=== PATIENT | male | born 1950 | race Caucasian/White ===

== ENCOUNTER → 2019-05-29 13:41 | Outpatient (CLI) | payer MEDICARE, SELFPAY ==
[2019-05-19 10:55] VITALS: BMI 31.2
--- NOTE | 2019-05-29 13:44 | ECHOD_ITS ---
Reason For Study: CAD Procedure This was a 2D Doppler, Color Flow transthoracic echocardiogram. Exam performed in department. Left Ventricle Normal LV size. Normal size and thickness. The estimated ejection fraction is 65 %. Stage 1 diastolic dysfunction. No regional wall motion abnormalities noted. Right Ventricle Normal size and thickness. Normal systolic function. Atria Normal left atrium. Normal right atrium. Normal atrial septum. Mitral Valve The mitral valve is structurally normal. No prolapse or stenosis seen. Tricuspid Valve Normal tricuspid valve. Trivial tricuspid valve insufficiency. Right ventricular systolic pressure estimated to be 33 mmHg. Aortic Valve Normal aortic valve. Trisinus/trileaflet aortic valve. Pulmonic Valve Normal pulmonic valve. Great Vessels Normal aortic root. Normal arch. Normal inferior vena cava. Inferior vena cava collapse with sniff. Pericardium/Pleural No pericardial effusion. MMode/2D Measurements & Calculations LVIDd: 4.6 cm IVSd: 1.1 cm Ao root diam: 3.0 cm LVIDs: 2.8 cm LVPWd: 0.96 cm RVDd: 3.2 cm FS: 40.3 % LAV(MOD-bp): 51.5 ml EDV(MOD-sp4): 91.5 ml EDV(MOD-sp2): 76.0 ml LAV(MOD-bp) Indexed: 23.5 ml/m2 ESV(MOD-sp4): 34.3 ml EF(MOD-sp2): 51.7 % LAV(MOD-sp2): 54.7 ml EF(MOD-sp4): 62.5 % LAV(MOD-sp4): 44.9 ml SV(MOD-sp4): 57.2 ml SV(MOD-sp2): 39.3 ml LA A4 area: 16.8 cm2 RA A4 area: 14.1 cm2 Doppler Measurements & Calculations MV E max brady: 60.9 cm/sec Lat Peak E' Brady: 8.3 cm/sec Med Peak E' Brady: 6.5 cm/sec MV A max brady: 78.2 cm/sec E/E' lat: 7.3 E/E' med: 9.3 MV E/A: 0.78 Ao V2 max: 142.9 cm/sec LV V1 max: 116.4 cm/sec PA V2 max: 152.0 cm/sec Ao max P.2 mmHg LV V1 max P.4 mmHg TR max brady: 265.6 cm/sec TR max P.2 mmHg Interpretation Summary The estimated ejection fraction is 65 %. Stage 1 diastolic dysfunction. Trivial tricuspid valve insufficiency. Right ventricular systolic pressure estimated to be 33 mmHg. There is no comparison study available. Ordering Physician: Willis Hutson Referring Physician: Jose David Barajas Performed By: Leslee Christian RDCS
== END ==
PROVIDERS: PCP Family Medicine; Referring Provider Internal Medicine Cardiovascular Disease; Visit Provider Internal Medicine Cardiovascular Disease
DX: I25.10 Atherosclerotic heart disease of native coronary artery without angina pectoris (principal)
CPT/HCPCS: 93306

== ENCOUNTER → 2019-06-02 | Outpatient (CLI) | payer MEDICARE, SELFPAY ==
[2019-05-19 10:55] VITALS: BMI 31.2
--- NOTE | 2019-06-02 10:28 | STEWCON_ITS ---
Reason For Study: CAD/ASHD Stress Results Protocol: [facility] Protocol WITH DEFINITY Maximum Predicted HR: 150 bpm Target HR: 128 bpm % Maximum Predicted HR: 89 % DurationHeart Rate Stage (mm:ss) (bpm) BP Comment baseline 69 114/684 ml total definity given stage 1 3:00 92 120/70 stage 2 3:00 113 158/90 stage 3 2:00 133 170/96moderate shortness of breath, legs tired recovery 84 128/78 Stress Duration: 8:00 mm:ss Maximum Stress HR: 133 bpm Baseline Echocardiogram Findings The estimated ejection fraction is 65 %. Stress Echo Wall motion Data Resting WM Intermediate WM Stress WM Resting Wall Motion Wall Motion Stress No regional wall motion No regional wall motion abnormalities noted. abnormalities noted. EKG Data The baseline ECG displays normal sinus rhythm. The patient exercised according to the regular Haroldo protocol for a total duration of 8:00. The maximum heart rate attained was 134 beats per minute. This was 89% of maximum predicted heart rate. The patient exercised into stage 3 of the Haroldo protocol. During stress, there were no ST or T wave changes noted to suggest ischemia. No clinical angina was noted. No arrhythmias noted. Interpretation Summary The estimated ejection fraction is 65 %. Normal, adequate, treadmill echocardiogram. Negative for ischemia by EKG and echocardiographic criteria. No anginal symptoms noted. No arrhythmias noted. Average exercise capacity for age. Appropriate blood pressure response to exercise. Final LVEF is 75%. Decrease sensitivity due to poor echo windows requiring Definity agent. Patient tolerated procedure well. No complications. The study was technically difficult. Contrast injection was performed. Ordering Physician: Willis Hutson Referring Physician: Willis Hutson Performed By: Arely Alegria, RDCS, RVT
== END | disposition home or self-care (01) ==
LOC: CVS 10:28
PROVIDERS: PCP Family Medicine; Referring Provider Internal Medicine Cardiovascular Disease; Visit Provider Internal Medicine Cardiovascular Disease
DX: I25.10 Atherosclerotic heart disease of native coronary artery without angina pectoris (principal)
CPT/HCPCS: 93017; 93350; Q9957; A4216; C8928

== ENCOUNTER 2021-02-25 12:41 | Emergency (ER) | payer MEDICARE, SELFPAY ==
[2021-02-25 12:43] VITALS: BP 149/88; PULSE 72; RESP 14; TEMP 36; O2SAT 100; BMI 30.2
--- NOTE | 2021-02-25 13:02 | US_ITS ---
EXAM: US ABDOMEN LIMITED, RIGHT UPPER QUADRANT : 1950 CLINICAL INDICATION: ruq pain TECHNIQUE: Real-time ultrasound of the right upper quadrant with image documentation. This report was created using [employer] report [employer] technology. COMPARISON: None. FINDINGS: LIVER: There is a diffuse increase in hepatic parenchymal echogenicity, consistent with fatty infiltration. No intrahepatic biliary ductal dilation. GALLBLADDER: Unremarkable. No shadowing gallstone. No gallbladder wall thickening is demonstrated. No pericholecystic fluid. Negative sonographic Barnes's sign. COMMON BILE DUCT: Unremarkable as visualized. The proximal common bile duct is within normal limits for the patient's age. PANCREAS: Unremarkable as visualized. No focal abnormality is demonstrated in the pancreas. No pancreatic ductal dilatation. RIGHT KIDNEY: 2 small nonobstructive right renal stones are noted. No focal lesion or perinephric collection is demonstrated. 7 mm lower pole cyst. US/Gallbladder IMPRESSION: 1. Normal gallbladder. 2. Parenchymal liver disease. 3. Right nephrolithiasis at 1543 Reported and signed by: Stevan Solomon MD Electronically Signed: Stevan Solomon MD at 15:42 EDT Tel , Service support ,
--- NOTE | 2021-02-25 13:03 | RAD_ITS ---
History: chest pain EXAMINATION/TECHNIQUE: XR Chest 1 View: Portable COMPARISON: None FINDINGS: LINES/DEVICES: None. LUNGS: No consolidation, edema or effusion. No pneumothorax. MEDIASTINUM AND CARDIOVASCULAR STRUCTURES: Cardiac silhouette not enlarged. Central airways and mediastinal contour are unremarkable. BONES AND SOFT TISSUES: Unremarkable. RAD/Chest 1 View (Portable) IMPRESSION: No radiographic evidence of acute cardiopulmonary disease. at 1346 Reported and signed by: Stevan Solomon MD Electronically Signed: Stevan Solomon MD at 13:44 EDT Tel , Service support ,
--- NOTE | 2021-02-25 13:05 | EDS_ITS ---
HPI History of Present Illness Chief Complaint: Chest Pain Informant: patient Onset/Context/Timing Onset: Days (5) Timing: Intermittent Quality: Positive for Aching Location: Right Chest (lateral chest near axilla, radiating into R shoulder) Current Severity: Mild Maximum Severity: 8/10 Worsened By: Nothing Relieved By: Nothing Associated Symptoms: Negative for Nausea, Vomiting, Diaphoresis, Dyspnea, Cough, Lightheadedness and Palpitations Narrative Narrative: Patient states he has had intermittent pain in his right lateral chest radiating up to his right shoulder for the past 5 days or so. 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 He states it had not been triggered by anything in particular and he has been having random events, not triggered by food or movement that he knows of. Today, he was walking in a grocery store about half an hour prior to arrival, and it came back and was severe. He was not lifting anything. He states he nearly took his breath away but he denies having any dyspnea. No presyncope or lightheadedness, palpitations, nausea, sweating, or dyspnea. No recent illness. No recent leg pain or swelling. He states moving his arm around cannot make it worse but there is one particular spot that he feels like he can push on and make it worse although he states when it was worse than now, it seemed to be in a broader area on the right lateral chest. He has a history of for blocked coronary arteries, which has required 8 stents in the past, which is the reason he was concerned about having this discomfort although he admits this feels nothing like his prior episodes of angina that led to PCI. PE Risk Factors: Negative for Recent Travel/Surgery, Recent Immobilization, Prior DVT or PE, Cancer and OCP + Smoking + >/=35 [facility] Medical History (Updated 02/25/21 @ 15:[address] Jc Olivares MD) Atherosclerosis of coronary artery of 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 Presence of stent in coronary artery (~11/04/12) Home Medications lisinopril 10 mg PO DAILY 11/13/15 [History Last Taken Unknown] atorvastatin 40 mg tablet 40 mg PO QHS #90 tab 02/25/19 [Rx Last Taken Unknown] metformin 500 mg tablet 1,000 mg PO BID tab 05/11/19 [History Last Taken Unknown] multivitamin 1 tab PO DAILY 05/19/19 [History Last Taken Unknown] sitagliptin 100 mg tablet 100 mg PO DAILY 05/19/19 [History Last Taken Unknown] ezetimibe 10 mg tablet 10 mg PO DAILY #90 tab 12/21/19 [Rx Last Taken Unknown] cholecalciferol (vitamin D3) 50 mcg (2,000 unit) capsule 50 mcg PO DAILY 06/16/20 [History Last Taken Unknown] aspirin 81 mg tablet,delayed release 81 mg PO DAILY 06/20/20 [History Last Taken Unknown] diclofenac potassium 50 mg tablet 50 mg PO BID 01/06/21 [History Last Taken Unknown] finasteride 5 mg tablet 5 mg PO DAILY 01/06/21 [History Last Taken Unknown] metoprolol succinate 50 mg tablet,extended release 24 hr 25 mg PO DAILY 01/06/21 [History Last Taken Unknown] vit B6-mag cit,oxid-potass cit [Theralith XR] 2 tab PO DAILY 02/25/21 [History Last Taken Unknown] Allergy/AdvReac Type Severity Reaction Status Date / Time Tetanus Vaccines and Toxoid Allergy Anaphylaxis Verified 02/25/21 13:18 [Tetanus Vaccines & Toxoid] seasonal allergies Allergy Intermediate Nasal Uncoded 02/25/21 13:18 congestion, cough Family History Father Kidney stones Brain tumor Mother Hypertension Congestive heart failure Brother CAD (coronary artery disease) Hypertension Hyperlipidemia Surgical History History of colon resection (01/1963) History of lithotripsy 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: Presence of coronary angioplasty implant and graft (~11/04/12) Status post cataract extraction of both eyes with insertion of intraocular lens (~07/2014) Social History Smoking Status: Former smoker quit date: 01/01/92 pack-years: 28 ROS ROS ED Constitutional Constitutional ED: Denies chills or fever(s) Eyes Eyes: Denies change in vision or diplopia ENT ENT ED: Denies rhinorrhea or sore throat Cardiovascular Cardiovascular: Reports as per HPI and chest pain; Denies palpitations Respiratory/Chest Respiratory/Chest: Denies cough or dyspnea Gastrointestinal Gastrointestinal: Denies abdominal pain, diarrhea, nausea or vomiting Genitourinary Genitourinary ED: Denies dysuria or hematuria Musculoskeletal Musculoskeletal: Reports as per HPI; Denies back pain or neck pain Integumentary Denies abscess or rash Neurologic Neurologic: Denies headache(s), paresthesias or weakness Psychiatric Psychiatric: Denies anxiety or suicidal thoughts EXAM Physical Exam Const Vital Signs: 02/25/21 12:43 02/25/21 12:45 02/25/21 13:23 Temperature 96.8 F L Temperature Source Temporal Pulse Rate 72 Respiratory Rate 14 Respiratory Effort Normal Non-Labored Blood Pressure 149/88 H Blood Pressure Mean 108 Pulse Ox 100 96 Oxygen Delivery Method Room Air Room Air 02/25/21 13:41 02/25/21 14:53 02/25/21 15:00 Temperature Temperature Source Pulse Rate 75 66 65 Respiratory Rate 20 H 20 H 18 Respiratory Effort Blood Pressure 106/73 112/73 121/93 H Blood Pressure Mean 84 86 102 Pulse Ox 95 97 97 Oxygen Delivery Method Room Air Room Air Room Air Positive well nourished and well developed General Appearance ED: well developed and NAD HEENT Reports moist mucous membranes normocephalic and atraumatic Eyes PERRL and EOMs intact bilaterally Neck full ROM and supple Chest Wall inspection of chest normal and palpation of chest normal Chest: Negative for tenderness Resp normal respiratory effort and clear to auscultation bilaterally Cardio regular rate, regular rhythm and no murmurs Rate: Negative for tachycardic GI non-tender and non-distended Auscultation: normoactive bowel sounds Palpation: soft Back/Spine no CVA tenderness General Back: other FROM Extremity normal to inspection and no calf tenderness General Extremety ED: Negative for edema, pulses abnormal or tenderness General Extremity: Negative for edema or pulses abnormal Neuro oriented x3, CN's II-XII intact bilaterally and no sensory deficits noted Sensorium / Orientation: awake and alert Motor Exam: strength 5/5 throughout Skin no rashes or lesions noted and no wounds Heart Score History: Slightly/Non-Suspicious ECG: Nonspecific Repolarization Age: >/= 65 years Risk Factors: >/= 3 Risk Factors or History of CAD Troponin: </= Normal Limit Score: 5 MDM MDM MDM Narrative Medical decision making narrative: This is certainly atypical discomfort/symptoms, differential ranges from a muscle/rib pain to atypical angina, pulmonary embolus, biliary colic. His cardiac work-up is unremarkable, he does have a lot of ectopy but is asymptomatic with it and I believe is incidental. His D-dimer is slightly abnormal but when corrected for age is well within normal limits to rule out pulmonary embolus. He has no leukocytosis, his liver enzymes are normal, but his lipase incidentally is elevated 1332. Ultrasound of the gallbladder was being obtained anyway which is the next appropriate test for this, that is pending at this time. Certainly clinically he does not have acute pancreatitis. He declined pain medicine since he was barely having any discomfort at the time of initial evaluation and on reevaluation he states his symptoms are gone and he is feeling fine now. Gallbladder results returned, as below there noted. I discussed the nephrolithiasis with the patient, it is certainly possible that was causing the referred pain as well, if he was passing a stone. Follow-up advised. Lab Data Attestation: I reviewed the patient's lab results. Labs: Laboratory Results - last 24 hr 02/25/21 02/25/21 02/25/21 12:35 12:35 12:35 WBC 8.3 RBC 4.67 Hgb 13.6 Hct 42.1 MCV 90.1 MCH 29.1 MCHC 32.3 RDW Std Deviation 43.0 RDW Coeff of Esther 13.1 Plt Count 284 MPV 10.9 Immature Gran % (Auto) 0.500 Neut % (Auto) 49.4 Lymph % (Auto) 30.1 [place] % (Auto) 12.1 H Eos % (Auto) 6.9 H Baso % (Auto) 1.0 Absolute Neuts (auto) 4.1 Absolute Lymphs (auto) 2.49 Nucleated RBC % 0 D-Dimer Quant (PE/DVT) 0.53 H* Sodium 143 Potassium 4.7 Chloride 113 H Carbon Dioxide 22.0 Anion Gap 8 BUN 26 H Creatinine 1.30 Estim Creat Clear Calc 53.03 Est GFR (MDRD) Af Amer 70 Est GFR (MDRD) Non-Af 58 L BUN/Creatinine Ratio 20.0 Glucose 97 Calcium 9.8 Total Bilirubin 0.60 AST 14 L ALT 29 Alkaline Phosphatase 54 Troponin I High Sens 7 Total Protein 7.9 Albumin 3.8 Globulin 4.1 Albumin/Globulin Ratio 0.9 Lipase 1332 H Radiography Diagnostic Testing: Clinical Impression(s) from Imaging Studies Gallbladder Ultrasound 02/25/21 13:02 IMPRESSION: 1. Normal gallbladder. 2. Parenchymal liver disease. 3. Right nephrolithiasis at 1543 Reported and signed by: Stevan Solomon MD Electronically Signed: Stevan Solomon MD at 15:42 EDT Tel , Service support , Chest X-Ray 02/25/21 13:03 IMPRESSION: No radiographic evidence of acute cardiopulmonary disease. at 1346 Reported and signed by: Stevan Solomon MD Electronically Signed: Stevan Solomon MD at 13:44 EDT Tel , Service support , Rhythm Strip Rhythm Strip: Sinus Rhythm Rate: 70 Ectopy: PVC(s) (frequent, occasionally in bigeminy) EKG Initial EKG: Attestation: I personally reviewed and interpreted this EKG as follows: Interpretation: Sinus Rhythm and No Acute Injury Pattern Comments: PVCs Discharge Plan Triage Chief Complaint: Chest Pain ED Provider: Jc Olivares Dx/Rx/DC Orders Clinical Impression: Right-sided chest pain, Elevated lipase, Right nephrolithiasis Instructions: ED Chest Pain, Noncardiac, ED Full Liquid Diet Prescriptions: No Action metformin 500 mg tablet 1,000 mg PO BID RF: 0 multivitamin Tablet 1 tab PO DAILY RF: 0 Januvia 100 mg tablet 100 mg PO DAILY RF: 0 ezetimibe 10 mg tablet 10 mg PO DAILY Qty: 90 RF: 3 cholecalciferol (vitamin D3) 50 mcg (2,000 unit) capsule 50 mcg PO DAILY RF: 0 diclofenac potassium 50 mg tablet 50 mg PO BID RF: 0 metoprolol succinate 50 mg tablet extended release 24 hr 25 mg PO DAILY RF: 0 finasteride 5 mg tablet 5 mg PO DAILY RF: 0 lisinopril 10 MG tablet 10 mg PO DAILY RF: 0 Theralith XR 3.75-45-45-49.5 mg Tablet Extended Release 2 tab PO DAILY RF: 0 atorvastatin 40 mg tablet 40 mg PO QHS Qty: 90 RF: 3 aspirin [Adult Aspirin Regimen] 81 mg tablet,delayed release (DR/EC) 81 mg PO DAILY RF: 0 Primary Care Provider: Jose David Barajas Referrals: Jose David Barajas MD [Primary Care Provider] - As soon as possible (After the weekend, call for appointment) Activity Restrictions/Additional Instructions: Stay on full liquid diet for approximately 48 hours to see if that makes a difference in your symptoms/pain Disposition Disposition: Home, Self Care
[2021-02-25 13:16] LABS: Absolute Lymphocyte Count 2.49 X10^3/uL (0.83-4.51); Absolute Neutrophil Count 4.1 X10^3/uL (2.0-7.7); Basophil# 0.08 X10^3/uL; Eosinophil# 0.57 X10^3/uL; Eosinophils% 6.9 % (0-5); Hematocrit 42.1 % (40-54); Hemoglobin 13.6 g/dL (13.0-16.5); Lymphocyte # 2.49 X10^3/ul (0.83-4.51); Lymphocyte % 30.1 % (19-41); Mean Corp Hgb Conc 32.3 g/dL (32-36); Mean Corpuscular Hgb 29.1 pg (27.0-32.0); Mean Corpuscular Volume 90.1 fL (80-94); Mean Platelet Vol. 10.9 fl (6.2-12.0); Monocyte% 12.1 % (0-10); NRBC Flagged by Analyzer 0 % (0-5); Neutrophil # 4.09 X10^3/uL (2.7-7.7); Neutrophil % 49.4 % (47-70); Platelet Count 284 K/mm3 (150-450); RBC Distribution Width CV 13.1 % (11.6-14.6); Red Blood Count 4.67 M/mm3 (4.6-6.2); White Blood Count 8.3 K/mm3 (4.4-11.0)
[2021-02-25 13:23] VITALS: O2SAT 96
[2021-02-25 13:28] LABS: ALB/GLOB Ratio 0.9 RATIO (0.9-2.4); AST(SGOT) 14 U/L (15-37); Alanine Aminotransfer ALT/SGPT 29 U/L (16-61); Albumin, Serum 3.8 g/dL (3.2-5.0); Alkaline Phosphatase 54 U/L (45-117); Anion Gap 8 (5-15); BUN 26 mg/dL (7-18); Calcium,Total 9.8 mg/dL (8.5-10.1); Chloride 113 mmol/L (98-107); EST Glomerular Filtration Rate 58 mL/min (>60); Est Glom Filt Rate - Afr Amer 70 mL/min (>60); Estimated Creatinine Clearance 53.03 ml/min; Globulin 4.1 g/dL (2.2-4.2); Glucose 97 mg/dL (74-106); Lipase 1332 U/L (73-393); Potassium 4.7 mmol/L (3.5-5.1); Protein, Total 7.9 g/dL (6.4-8.2); Sodium Level 143 mmol/L (136-145); Troponin-I HS 7 pg/mL (3.0-78.0)
[2021-02-25 13:30] LABS: D-Dimer Quantitative (DVT/PE) 0.53 FEU/ug/m (0.27-0.49)
[2021-02-25 13:41] VITALS: BP 106/73; PULSE 75; RESP 20; O2SAT 95
[2021-02-25 14:53] VITALS: BP 112/73; PULSE 66; RESP 20; O2SAT 97
[2021-02-25 15:00] VITALS: BP 121/93; PULSE 65; RESP 18; O2SAT 97
[2021-02-25 15:56] VITALS: BP 117/82; PULSE 61; RESP 17; O2SAT 97
== END 2021-02-25 16:03 | disposition home or self-care (01) ==
PROVIDERS: Emergency Provider Emergency Medicine; PCP Family Medicine
DX: N20.0 Calculus of kidney (principal); R07.89 Other chest pain; R79.89 Other specified abnormal findings of blood chemistry; I25.10 Atherosclerotic heart disease of native coronary artery without angina pectoris; E11.9 Type 2 diabetes mellitus without complications; I10 Essential (primary) hypertension; E78.5 Hyperlipidemia, unspecified; Z95.5 Presence of coronary angioplasty implant and graft; Z79.84 Long term (current) use of oral hypoglycemic drugs; Z79.899 Other long term (current) drug therapy; Z87.891 Personal history of nicotine dependence
CPT/HCPCS: 71045; 76705; 80053; 83690; 84484; 85025; 85379; 93005; 99284; A4216

== ENCOUNTER 2021-06-05 12:26 | Emergency (ER) | payer MEDICARE, SELFPAY ==
[2021-06-05 12:27] VITALS: BP 133/68; PULSE 73; RESP 15; TEMP 35.8; O2SAT 98; BMI 30.3
[2021-06-05 12:34] VITALS: BP 133/68; PULSE 76; RESP 12; O2SAT 98
--- NOTE | 2021-06-05 12:54 | EKG12_ITS ---
Test Reason : CP Blood Pressure : / mmHG Vent. Rate : 068 BPM Atrial Rate : 068 BPM P-R Int : 176 ms QRS Dur : 074 ms QT Int : 370 ms P-R-T Axes : 032 012 042 degrees QTc Int : 393 ms Sinus rhythm with occasional Premature ventricular complexes Otherwise normal ECG Confirmed by SHASHI BEAR, HOLLY ([id number]), editor department GARRETT ZARCO ([id number]) on 06/06/2021 8:36:31 AM Referred By: Confirmed By:HOLLY DANIELLE MD
[2021-06-05 12:55] VITALS: O2SAT 97
--- NOTE | 2021-06-05 12:55 | EDS_ITS ---
HPI History of Present Illness Chief Complaint: Chest Pain Informant: patient Onset/Context/Timing Onset: Hours (several) Activity at onset: sudden and light activity (walking in house after got up this AM) Timing: Continuous Quality: Positive for Pressure and - (poking) Location: Substernal (just right of lower substernum radiating into back opposite affected area) Current Severity: Gone Maximum Severity: Moderate Worsened By: Exertion and Breathing Relieved By: NSAIDS (took full asa) Associated Symptoms: Positive for Lightheadedness; Negative for Nausea, Vomiting, Diaphoresis, Dyspnea, Cough and Palpitations Narrative Narrative: Patient has a history of 8 coronary stents, the last of which was placed in 2012. Presents having similar discomfort in his lower chest right parasternal area radiating into his back. It does get worse with breathing but mildly. He denies any syncope or presyncope. No tearing sensations. No focal neurologic symptoms. No diaphoresis, dyspnea, arm or jaw discomfort. He took a full aspirin prior to coming to gradually improved and now it is gone during evaluation. Patient denies history of DVT or PE. He takes baby aspirin no other antiplatelet or anticoagulant medications. No recent travel, hospitalization, surgery, or leg pain/swelling. No recent illnesses. 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 Presence of stent in coronary artery (~11/04/12) Home Medications lisinopril 10 mg PO DAILY 11/13/15 [History Last Taken Unknown] atorvastatin 40 mg tablet 40 mg PO QHS #90 tab 02/25/19 [Rx Last Taken Unknown] metformin 500 mg tablet 1,000 mg PO BID tab 05/11/19 [History Last Taken Unknown] multivitamin 1 tab PO DAILY 05/19/19 [History Last Taken Unknown] sitagliptin 100 mg tablet 100 mg PO DAILY 05/19/19 [History Last Taken Unknown] ezetimibe 10 mg tablet 10 mg PO DAILY #90 tab 12/21/19 [Rx Last Taken Unknown] cholecalciferol (vitamin D3) 50 mcg (2,000 unit) capsule 50 mcg PO DAILY 06/16/20 [History Last Taken Unknown] aspirin 81 mg tablet,delayed release 81 mg PO DAILY 06/20/20 [History Last Taken Unknown] diclofenac potassium 50 mg tablet 50 mg PO BID 01/06/21 [History Last Taken Unknown] finasteride 5 mg tablet 5 mg PO DAILY 01/06/21 [History Last Taken Unknown] metoprolol succinate 50 mg tablet,extended release 24 hr 25 mg PO DAILY 01/06/21 [History Last Taken Unknown] vit B6-mag cit,oxid-potass cit [Theralith XR] 2 tab PO DAILY 02/25/21 [History Last Taken Unknown] Allergy/AdvReac Type Severity Reaction Status Date / Time Tetanus Vaccines and Toxoid Allergy Anaphylaxis Verified 06/05/21 12:27 [Tetanus Vaccines & Toxoid] seasonal allergies Allergy Intermediate Nasal Uncoded 06/05/21 12:27 congestion, cough Family History Father Kidney stones Brain tumor Mother Hypertension Congestive heart failure Brother CAD (coronary artery disease) Hypertension Hyperlipidemia Surgical History History of colon resection (01/1963) History of lithotripsy 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: Presence of coronary angioplasty implant and graft (~11/04/12) Status post cataract extraction of both eyes with insertion of intraocular lens (~07/2014) Social History Smoking Status: Former smoker quit date: 05/06/91 pack-years: 28 ROS ROS ED Constitutional Constitutional ED: Denies chills or fever(s) Eyes Eyes: Denies change in vision or diplopia ENT ENT ED: Denies rhinorrhea or sore throat Cardiovascular Cardiovascular: Reports chest pain; Denies palpitations Respiratory/Chest Respiratory/Chest: Denies cough or dyspnea Gastrointestinal Gastrointestinal: Denies abdominal pain, diarrhea, nausea or vomiting Genitourinary Genitourinary ED: Denies dysuria or hematuria Musculoskeletal Musculoskeletal: Denies back pain or neck pain Integumentary Denies abscess or rash Neurologic Neurologic: Denies headache(s), paresthesias or weakness Psychiatric Psychiatric: Denies anxiety or suicidal thoughts EXAM Physical Exam Const Vital Signs: 06/05/21 12:27 06/05/21 12:34 06/05/21 12:55 Temperature 96.4 F L Temperature Source Temporal Pulse Rate 73 76 Respiratory Rate 15 12 Blood Pressure 133/68 H 133/68 H Blood Pressure Mean 89 89 Pulse Ox 98 98 97 Oxygen Delivery Method Room Air Room Air Room Air 06/05/21 13:32 06/05/21 14:12 Temperature Temperature Source Pulse Rate 77 68 Respiratory Rate 16 18 Blood Pressure 125/78 H 122/77 H Blood Pressure Mean 93 92 Pulse Ox 98 97 Oxygen Delivery Method Room Air Room Air Positive well nourished and well developed General Appearance ED: well developed and NAD HEENT Reports moist mucous membranes normocephalic and atraumatic Eyes PERRL and EOMs intact bilaterally Neck full ROM and supple Resp normal respiratory effort and clear to auscultation bilaterally Cardio regular rate, regular rhythm, S1 normal heart sound and no murmurs Rate: other Other Details: Split S2 GI non-tender and non-distended Auscultation: normoactive bowel sounds Palpation: soft Back/Spine no CVA tenderness General Back: other FROM Extremity normal to inspection, no calf tenderness and no pedal edema General Extremety ED: Negative for edema, pulses abnormal or tenderness General Extremity: Negative for edema or pulses abnormal Neuro oriented x3, CN's II-XII intact bilaterally and no sensory deficits noted Sensorium / Orientation: awake and alert Motor Exam: strength 5/5 throughout Skin no rashes or lesions noted and no wounds Heart Score History: Moderately Suspicious ECG: Nonspecific Repolarization Age: >/= 65 years Risk Factors: >/= 3 Risk Factors or History of CAD Troponin: </= Normal Limit Score: 6 MDM MDM MDM Narrative Medical decision making narrative: Work-up is unremarkable including negative D- dimer. His EKG shows unchanged diffuse ST-T wave abnormalities. There is no acute injury pattern. I am concerned about his symptoms. On reevaluation after his work-up return, his discomfort has not returned and the patient wants to leave because of this. We discussed the possibility of this being unstable angina and the fact that he has 8 stents, in addition to the possibility of having an NE that could result in while waiting to follow-up with cardiology, having further work-up, etc. He understands all that, the second troponin came back negative, and we shared decision-making, the patient decides to leave understanding fully the risks, his was present for all of the discussion and they are comfortable with this overall plan of following up with cardiology. I did discuss briefly with Dr. Duval, he agreed that admitting the patient would be reasonable despite negative troponins given the symptoms but at the same time the patient does not have classic angina and if he wants to follow-up and take on the risk, they will see him as an outpatient. Lab Data Attestation: I reviewed the patient's lab results. Labs: Laboratory Results - last 24 hr 06/05/21 06/05/21 06/05/21 12:42 12:42 12:42 WBC 8.1 RBC 4.85 Hgb 14.2 Hct 42.4 MCV 87.4 MCH 29.3 MCHC 33.5 RDW Std Deviation 39.5 RDW Coeff of Esther 12.3 Plt Count 256 MPV 10.7 Immature Gran % (Auto) 0.400 Neut % (Auto) 52.0 Lymph % (Auto) 31.0 [place] % (Auto) 10.7 H Eos % (Auto) 5.3 H Baso % (Auto) 0.6 Absolute Neuts (auto) 4.2 Absolute Lymphs (auto) 2.50 Nucleated RBC % 0 D-Dimer Quant (PE/DVT) 0.38 Sodium 139 Potassium 4.3 Chloride 108 H Carbon Dioxide 25.0 Anion Gap 6 BUN 21 H Creatinine 1.01 Estim Creat Clear Calc 68.26 Est GFR (MDRD) Af Amer 93 Est GFR (MDRD) Non-Af 77 BUN/Creatinine Ratio 20.8 H Glucose 143 H Calcium 9.3 Troponin I High Sens 5 06/05/21 14:50 WBC RBC Hgb Hct MCV MCH MCHC RDW Std Deviation RDW Coeff of Esther Plt Count MPV Immature Gran % (Auto) Neut % (Auto) Lymph % (Auto) [place] % (Auto) Eos % (Auto) Baso % (Auto) Absolute Neuts (auto) Absolute Lymphs (auto) Nucleated RBC % D-Dimer Quant (PE/DVT) Sodium Potassium Chloride Carbon Dioxide Anion Gap BUN Creatinine Estim Creat Clear Calc Est GFR (MDRD) Af Amer Est GFR (MDRD) Non-Af BUN/Creatinine Ratio Glucose Calcium Troponin I High Sens 6 Radiography Diagnostic Testing: Clinical Impression(s) from Imaging Studies Chest X-Ray 06/05/21 12:55 IMPRESSION: No acute abnormality is seen. Electronically Signed: Lyndon Andrea MD at 13:45 EST , Rhythm Strip Rhythm Strip: Sinus Rhythm Rate: 65 Ectopy: PVC(s) EKG Initial EKG: Attestation: I personally reviewed and interpreted this EKG as follows: Interpretation: Sinus Rhythm, No Acute Injury Pattern and Non-Specific ST Changes (w/o JAMES/STD) Comments: PVCs Prior EKG tracings: available for review Prior: Unchanged Discharge Plan Triage Chief Complaint: Chest Pain Other Complaint: Hypertension Shortness of Breath ED Provider: Jc Olivares Dx/Rx/DC Orders Clinical Impression: Chest pain, unspecified, CAD (coronary artery disease) Instructions: ED Chest Pain, Uncertain Cause Prescriptions: No Action metformin 500 mg tablet 1,000 mg PO BID RF: 0 multivitamin Tablet 1 tab PO DAILY RF: 0 Januvia 100 mg tablet 100 mg PO DAILY RF: 0 ezetimibe 10 mg tablet 10 mg PO DAILY Qty: 90 RF: 3 cholecalciferol (vitamin D3) 50 mcg (2,000 unit) capsule 50 mcg PO DAILY RF: 0 diclofenac potassium 50 mg tablet 50 mg PO BID RF: 0 metoprolol succinate 50 mg tablet extended release 24 hr 25 mg PO DAILY RF: 0 finasteride 5 mg tablet 5 mg PO DAILY RF: 0 lisinopril 10 MG tablet 10 mg PO DAILY RF: 0 Theralith XR 3.75-45-45-49.5 mg Tablet Extended Release 2 tab PO DAILY RF: 0 atorvastatin 40 mg tablet 40 mg PO QHS Qty: 90 RF: 3 aspirin [Adult Aspirin Regimen] 81 mg tablet,delayed release (DR/EC) 81 mg PO DAILY RF: 0 Primary Care Provider: Jose David Barajas Referrals: Jose David Barajas MD [Primary Care Provider] - uLcho Eng MD [STAFF PHYSICIAN] - As soon as possible Disposition Disposition: Home, Self Care
--- NOTE | 2021-06-05 12:55 | RAD_ITS ---
STUDY: X-RAY CHEST REASON FOR EXAM: Male, 71 years old. Chest pain TECHNIQUE: Single AP portable view of the chest. COMPARISON: Comparison is made with prior study 02/25/2021. FINDINGS: EKG electrodes are seen. The lungs are clear and expanded. There is no demonstrated pleural abnormality. Normal size heart. Normal mediastinum and malini. Normal visualized pulmonary arteries. Normal visualized aortic arch and descending thoracic aorta. There are diffuse degenerative changes of the visualized thoracic spine. Normal visualized ribs, clavicles, and shoulders. There is no demonstrated abnormality of the visualized soft tissue structures of the upper abdomen. RAD/Chest 1 View (Portable) IMPRESSION: No acute abnormality is seen. Electronically Signed: Lyndon Andrea MD at 13:45 EST ,
[2021-06-05 13:03] LABS: Absolute Neutrophil Count 4.2 X10^3/uL (2.0-7.7); Basophil# 0.05 X10^3/uL; Basophil% 0.6 % (0-1); Eosinophil# 0.43 X10^3/uL; Eosinophils% 5.3 % (0-5); Hematocrit 42.4 % (40-54); Hemoglobin 14.2 g/dL (13.0-16.5); Mean Corp Hgb Conc 33.5 g/dL (32-36); Mean Corpuscular Hgb 29.3 pg (27.0-32.0); Mean Corpuscular Volume 87.4 fL (80-94); Mean Platelet Vol. 10.7 fl (6.2-12.0); Monocyte# 0.86 X10^3/uL; Monocyte% 10.7 % (0-10); NRBC Flagged by Analyzer 0 % (0-5); Platelet Count 256 K/mm3 (150-450); RBC Distribution Width CV 12.3 % (11.6-14.6); RBC Distribution Width SD 39.5 fl (35.1-43.9); Red Blood Count 4.85 M/mm3 (4.6-6.2); White Blood Count 8.1 K/mm3 (4.4-11.0)
[2021-06-05 13:16] LABS: D-Dimer Quantitative (DVT/PE) 0.38 FEU/ug/m (0.27-0.49)
[2021-06-05 13:17] LABS: Anion Gap 6 (5-15); BUN 21 mg/dL (7-18); BUN/Creat Ratio 20.8 RATIO (10-20); Calcium,Total 9.3 mg/dL (8.5-10.1); Chloride 108 mmol/L (98-107); Creatinine, Serum 1.01 mg/dL (0.70-1.30); EST Glomerular Filtration Rate 77 mL/min (>60); Est Glom Filt Rate - Afr Amer 93 mL/min (>60); Estimated Creatinine Clearance 68.26 ml/min; Glucose 143 mg/dL (74-106); Potassium 4.3 mmol/L (3.5-5.1); Sodium Level 139 mmol/L (136-145); Troponin-I HS 5 pg/mL (3.0-78.0)
[2021-06-05 13:32] VITALS: BP 125/78; PULSE 77; RESP 16; O2SAT 98
[2021-06-05 14:12] VITALS: BP 122/77; PULSE 68; RESP 18; O2SAT 97
[2021-06-05 15:13] LABS: Troponin-I HS 6 pg/mL (3.0-78.0)
[2021-06-05 15:46] VITALS: BP 137/78; PULSE 72; RESP 16; TEMP 36.4; O2SAT 98
--- NOTE | 2021-06-06 11:45 | CASEMGMT ---
LOBO CONTRERAS ED follow-up: Date of ED visit: 06/05/2021 ER presenting complaint: chest pain LOBO CONTRERAS placed call to patient's telephone number listed on demographics, patient answered. Patient states feeling pretty good today and denies chest pain, shortness of breath or other complaint. Patient reports he has scheduled follow up appointment with Dr. Duval's office for 06/08/2021. Patient encouraged to keep scheduled appointed. Instructed on red flag signs and symptoms to monitor for. Patient denies questions, concerns or needs. LOBO [place] CM
== END 2021-06-05 15:49 | disposition home or self-care (01) ==
PROVIDERS: Emergency Provider Emergency Medicine; PCP Family Medicine; Visit Provider Emergency Medicine
DX: R07.9 Chest pain, unspecified (principal); I25.10 Atherosclerotic heart disease of native coronary artery without angina pectoris; Z87.891 Personal history of nicotine dependence; Z95.5 Presence of coronary angioplasty implant and graft
CPT/HCPCS: 36415; 71045; 80048; 84484; 85025; 85379; 93005; 99284

== ENCOUNTER 2021-06-26 06:23 | Outpatient (CLI) | payer MEDICARE, SELFPAY ==
--- NOTE | 2021-06-26 06:25 | ECHOD_ITS ---
Reason For Study: RANGEL, chest pain Procedure This was a 2D Doppler, Color Flow transthoracic echocardiogram. The exam was of adequate technical quality. Exam performed in department. Left Ventricle Normal LV size. Left ventricular systolic function is normal. The estimated ejection fraction is 60 %. The global longitudinal strain = -16% (borderline). No evidence for diastolic dysfunction. No regional wall motion abnormalities noted. Right Ventricle Normal RV size. Normal systolic function. Atria The left atrium is mildly enlarged. Normal right atrium. No doppler evidence for ASD. Mitral Valve There is no mitral annular calcification. Mild focal mitral valve calcification of the posterior leaflet. Mild (1+) eccentric mitral valve insufficiency. Tricuspid Valve Normal tricuspid valve. Mild tricuspid valve insufficiency. Unable to estimate RV systolic pressure due to insufficient tricuspid regurgitant envelope. Aortic Valve Trisinus/trileaflet aortic valve. Mild focal aortic valve calcification. Pulmonic Valve The pulmonic valve is not well visualized. Trivial pulmonic valve insufficiency. Great Vessels Normal sized aortic root. Pericardium/Pleural No pericardial effusion. MMode/2D Measurements & Calculations LVIDd: 4.8 cm IVSd: 1.0 cm Ao root diam: 3.0 cm LVIDs: 3.4 cm LVPWd: 0.88 cm RVDd: 3.5 cm FS: 30.2 % LAV(MOD-bp): 51.9 ml LVAd ap4: 31.2 cm2 LVAd ap2: 31.8 cm2 LAV(MOD-bp) Indexed: 24.5 ml/m2 LVLd ap4: 8.4 cm LVLd ap2: 8.7 cm LAV(MOD-sp2): 53.0 ml EDV(MOD-sp4): 94.0 ml EDV(MOD-sp2): 96.5 ml LAV(MOD-sp4): 50.4 ml EDV(sp4-el): 98.4 ml EDV(sp2-el): 99.0 ml LVAs ap4: 19.3 cm2 LVAs ap2: 19.0 cm2 LVLs ap4: 7.4 cm LVLs ap2: 7.4 cm ESV(MOD-sp4): 42.3 ml ESV(MOD-sp2): 40.2 ml ESV(sp4-el): 42.4 ml ESV(sp2-el): 41.5 ml EF(MOD-sp4): 55.0 % EF(MOD-sp2): 58.3 % EF(sp4-el): 57.0 % SV(MOD-sp4): 51.7 ml SV(MOD-sp2): 56.2 ml SV(sp4-el): 56.1 ml LA dimension(2D): 3.8 cm LA A4 area: 18.2 cm2 RA A4 area: 15.7 cm2 Doppler Measurements & Calculations MV E max brady: 66.1 cm/sec Lat Peak E' Brady: 7.6 cm/sec Med Peak E' Brady: 6.9 cm/sec MV A max brady: 80.1 cm/sec E/E' lat: 8.7 E/E' med: 9.6 MV E/A: 0.83 Ao V2 max: 180.3 cm/sec LV V1 max: 104.4 cm/sec PA V2 max: 122.9 cm/sec Ao max P.0 mmHg LV V1 max P.4 mmHg ECHO/Echo Complete Interpretation Summary Left ventricular systolic function is normal. The estimated ejection fraction is 60 %. The global longitudinal strain = -16% (borderline). The left atrium is mildly enlarged. Mild focal mitral valve calcification of the posterior leaflet. Mild (1+) eccentric mitral valve insufficiency. Mild tricuspid valve insufficiency. Mild focal aortic valve calcification. Trivial pulmonic valve insufficiency. Unable to estimate RV systolic pressure due to insufficient tricuspid regurgita nt envelope. No evidence for diastolic dysfunction. Ordering Physician: Yohana Vuong Referring Physician: Jose David Barajas Performed By: Leslee Christian RDCS
--- NOTE | 2021-06-26 19:14 | STRESSREP ---
Stress Test Report Date: 06-26-2021 Procedure: Exercise tolerance test/imaging study Indications: Chest pain; dyspnea on exertion; CAD; PCI Consent: Per the patient Procedure: The patient exercised on a Haroldo protocol for 5 minutes and 31 seconds completing Stage I and 2 minutes and 31 seconds of Stage II achieving a peak heart rate of 139 bpm (93% predicted maximal heart rate) with a peak blood pressure 200/88 mmHg and a peak MET capacity of 7 METs. The baseline ECG demonstrated normal sinus rhythm. The peak exercise ECG demonstrated no obvious ECG changes. There was a rare PVC during exercise and early recovery. The functional capacity was considered average. There was no complaint of chest discomfort during exercise or recovery. The examination was discontinued secondary to dyspnea. Impression: 1. Technically adequate (percent predicted maximal heart rate greater than 85%) exercise tolerance test 2. Peak exercise ECG with no obvious ECG changes 3. There was a rare PVC during exercise and early recovery 4. Nuclear images pending Myocardial perfusion imaging study: Technique: The patient was injected with 11.7 mCi of technetium 99m Cardiolite and subsequently rest SPECT Cardiolite nuclear imaging was obtained in the horizontal long, vertical long, and short axis views. The patient exercised on a Haroldo protocol for 5 minutes and 31 seconds completing Stage I and 2 minutes and 31 seconds of Stage II achieving a peak heart rate of 139 bpm (93% predicted maximal heart rate) with a peak blood pressure 200/88 mmHg and a peak MET capacity of 7 METs. The patient was injected with 35.3 mCi of technetium 99m Cardiolite and subsequently stress SPECT Cardiolite nuclear imaging was obtained in the horizontal long, vertical long, and short axis views. A gated Cardiolite study at peak stress was obtained. Interpretation: Rest and stress SPECT Cardiolite nuclear imaging status post realignment, normalization, and attenuation correction, demonstrates the appearance of relative uniform tracer uptake and myocardial perfusion appearing within normal limits. There is end systolic thickening and brightening. The gated Cardiolite study demonstrates myocardial thickening and inward wall motion. The reported LVEF is 65%. Impression: 1. Rest and stress SPECT Cardiolite nuclear imaging demonstrate relative uniform tracer uptake and myocardial perfusion appearing within normal limits. 2. The gated Cardiolite study reports an LVEF of 65%. This note was generated with [employer] software. It may contain incorrect words, spelling, and punctuation that were not noted in checking the note before signing.
== END 2021-06-26 23:59 | disposition home or self-care (01) ==
LOC: CVS 06:24
PROVIDERS: PCP Family Medicine; Referring Provider Nurse Practitioner Gerontology; Visit Provider Nurse Practitioner Gerontology
DX: R07.9 Chest pain, unspecified (principal); I25.10 Atherosclerotic heart disease of native coronary artery without angina pectoris
CPT/HCPCS: 78452; 93017; 93306; A9500; A4216

== ENCOUNTER 2022-03-12 18:22 | Emergency (ER) | payer MEDICARE, SELFPAY ==
[2022-03-12 18:23] VITALS: BP 118/87; PULSE 78; RESP 18; TEMP 36; O2SAT 99; BMI 27.9
--- NOTE | 2022-03-12 18:49 | EDS_ITS ---
HPI <WILBERT Oneil - Last Filed: 03/12/22 19:52> History of Present Illness Chief Complaint: Bite Narrative Narrative: Patient presents after being bit on both hands by his dog. He states he was sitting in his recliner chair when his dog randomly came up and attacked him. The dog is up-to-date with rabies vaccination. He states he has not had a tetanus vaccine in several years and refuses to get one today due to having a severe allergy. 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 Presence of stent in coronary artery (~11/04/12) Home Medications lisinopril 10 mg tablet 10 mg PO DAILY 11/13/15 [History Last Taken Unknown] atorvastatin 40 mg tablet 40 mg PO QHS #90 tabs 02/25/19 [Rx Last Taken Unknown] metformin 500 mg tablet 1,000 mg PO BID 05/11/19 [History Last Taken Unknown] multivitamin 1 tab PO DAILY 05/19/19 [History Last Taken Unknown] sitagliptin phosphate 100 mg tablet (Januvia) 100 mg PO DAILY 05/19/19 [History Last Taken Unknown] ezetimibe 10 mg tablet 10 mg PO DAILY #90 tabs 12/21/19 [Rx Last Taken Unknown] cholecalciferol (vitamin D3) 50 mcg (2,000 unit) capsule 50 mcg PO DAILY 06/16/20 [History Last Taken Unknown] aspirin 81 mg tablet,delayed release (Adult Aspirin Regimen) 81 mg PO DAILY 06/20/20 [History Last Taken Unknown] finasteride 5 mg tablet 5 mg PO DAILY 01/06/21 [History Last Taken Unknown] metoprolol succinate 50 mg tablet,extended release 24 hr 25 mg PO DAILY 01/06/21 [History Last Taken Unknown] vit B6-mag cit,ox-potassium cit 3.75 mg-45 mg-45 mg-49.5 mg tablet ER (Theralith XR) 2 tab PO DAILY 02/25/21 [History Last Taken Unknown] naproxen sodium 220 mg capsule (Aleve) 220 mg PO BID PRN 06/08/21 [History Last Taken Unknown] meloxicam 15 mg tablet 15 mg PO DAILY 07/21/21 [History Last Taken Unknown] amoxicillin 875 mg-potassium clavulanate 125 mg tablet 1 tab PO BID dog bite 7 days #14 tabs 03/12/22 [Rx Last Taken Unknown] Allergy/AdvReac Type Severity Reaction Status Date / Time Tetanus Vaccines and Toxoid Allergy Anaphylaxis Verified 03/12/22 18:26 [Tetanus Vaccines & Toxoid] seasonal allergies Allergy Intermediate Nasal Uncoded 03/12/22 18:26 congestion, cough Family History Father Kidney stones Brain tumor Mother Hypertension Congestive heart failure Brother CAD (coronary artery disease) Hypertension Hyperlipidemia Surgical History History of colon resection (01/1963) History of lithotripsy 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: Presence of coronary angioplasty implant and graft (~11/04/12) Status post cataract extraction of both eyes with insertion of intraocular lens (~07/2014) Social History (Updated 07/21/21 @ 11:36 by Diana De La Paz) Smoking Status: Former smoker quit date: 05/06/91 pack-years: 28 alcohol intake: current alcohol intake frequency: a few times a week Alcohol type: beer, wine and hard liquor substance use type: does not use caffeine: Yes Type: coffee eating out: 4 or more times/week ROS <WILBERT Oneil - Last Filed: 03/12/22 19:52> ROS ED Constitutional Constitutional ED: Denies chills or fever(s) Eyes Eyes: Denies change in vision ENT ENT ED: Denies rhinorrhea or sore throat Cardiovascular Cardiovascular: Denies chest pain or racing heartbeat Respiratory/Chest Respiratory/Chest: Denies cough or dyspnea Gastrointestinal Gastrointestinal: Denies abdominal pain, nausea or vomiting Musculoskeletal Musculoskeletal: Denies myalgias Integumentary Reports laceration; Denies abscess or rash Neurologic Neurologic: Denies headache(s) or weakness EXAM <WILBERT Oneil - Last Filed: 03/12/22 19:52> Physical Exam Const Vital Signs: 03/12/22 18:23 Temperature 96.8 F L Temperature Source Temporal Pulse Rate 78 Respiratory Rate 18 Blood Pressure 118/87 H Blood Pressure Mean 97 Pulse Ox 99 Oxygen Delivery Method Room Air Positive well nourished HEENT atraumatic Eyes PERRL and EOMs intact bilaterally Neck full ROM Resp normal respiratory effort and clear to auscultation bilaterally Auscultation: Negative for rales, rhonchi, wheezes or diminished lung sounds Cardio regular rhythm and no murmurs Rate: regular rate GI non-tender, non-distended and no masses Back/Spine normal to inspection Extremity full ROM Extremity Narrative: Patient has multiple puncture wounds on both hands. He has a 1 inch superficial laceration on his left pinky. No edema or purulent discharge. General Extremety ED: Negative for edema General Extremity: Negative for edema Neuro oriented x3, moves all extremities, no focal motor deficits, no sensory deficits noted and gait normal Sensorium / Orientation: alert Motor Exam: strength 5/5 throughout Psych mental status grossly normal and thought process normal Skin Skin Narrative: Patient has multiple superficial puncture wounds on both hands. He has a 1-1.5 inch superficial laceration on his left pinky near the PIP joint. No edema, bony tenderness, deformity or purulent discharge. Bleeding is controlled. <Dr. Frandy Beltran, - Last Filed: 03/12/22 19:37> Physical Exam Const Vital Signs: 03/12/22 18:23 Temperature 96.8 F L Temperature Source Temporal Pulse Rate 78 Respiratory Rate 18 Blood Pressure 118/87 H Blood Pressure Mean 97 Pulse Ox 99 Oxygen Delivery Method Room Air [facility] <WILBERT Oneil - Last Filed: 03/12/22 19:52> [facility] Narrative Medical decision making narrative: Wounds have been cleaned with bacitracin ointment applied and bandaged. 1 dose of 875 mg Augmentin given here in the ED. Patient is able to discharge home with antibiotics. <Dr. Frandy Beltran, - Last Filed: 03/12/22 19:37> [facility] Treatment and Re-Evaluation Narrative: This patient was seen with a PA/SHOT CORE DRILL OPERATOR Individually assessed they patient including history and physical. I have reviewed everything on the chart that is available and agree with the documentation provided by the PA/SHOT CORE DRILL OPERATOR including discussion about the assessment, treatment plan, discussion, and return precautions. Patient presents after sustaining dog bites to both hands. Most of these are puncture type wounds. No bony tenderness or deformity. Bleeding is controlled. He does have a about a 1 to 1.5 inch laceration overlying the left PIP on the left pinky. Bleeding is controlled. Wound margins are fairly well approximated. Patient counseled the wound will need to heal by secondary intention. Patient declines tetanus update and states he is never had this. Patient does not anything for pain. Patient's wound cleaned and dressed. Discussed to soak these in hot soapy water 3-4 times a day. He started on Augmentin with first dose in the ER. Discharge Plan Triage Chief Complaint: Bite ED Midlevel Provider: Latoya Soliz ED Provider: Frandy Beltran Dx/Rx/DC Orders Clinical Impression: Dog bite of left hand, Dog bite of right hand Instructions: ED Dog Bite Prescriptions: New amoxicillin-pot clavulanate 875-125 mg tablet 1 tab PO BID 7 Days Qty: 14 0RF No Action metformin 500 mg tablet 1,000 mg PO BID multivitamin Tablet 1 tab PO DAILY Januvia 100 mg tablet 100 mg PO DAILY ezetimibe 10 mg tablet 10 mg PO DAILY Qty: 90 3RF cholecalciferol (vitamin D3) 50 mcg (2,000 unit) capsule 50 mcg PO DAILY metoprolol succinate 50 mg tablet extended release 24 hr 25 mg PO DAILY finasteride 5 mg tablet 5 mg PO DAILY meloxicam 15 mg tablet 15 mg PO DAILY naproxen sodium [Aleve] 220 mg capsule 220 mg PO BID PRN lisinopril 10 MG tablet 10 mg PO DAILY Theralith XR 3.75-45-45-49.5 mg Tablet Extended Release 2 tab PO DAILY atorvastatin 40 mg tablet 40 mg PO QHS Qty: 90 3RF aspirin [Adult Aspirin Regimen] 81 mg tablet,delayed release (DR/EC) 81 mg PO DAILY Primary Care Provider: Jose David Barajas Referrals: Jose David Barajas MD [Primary Care Provider] - 1 Week if not improving Activity Restrictions/Additional Instructions: Please seek medical attention if signs of infection begin such as red streaking from the wound, increased redness, pus-like discharge, increased swelling, or a fever develops. Clean wound with mild soap and water twice daily. You can put petroleum jelly or bacitracin ointment over the wound and cover with a bandage. Disposition Disposition: Home, Self Care Discharge Date/Time: 03/12/22 19:42
[2022-03-12] MEDS: Amox/Clavulanate 875 MG Tablet PO (19:05)
== END 2022-03-12 19:42 | disposition home or self-care (01) ==
PROVIDERS: Emergency Provider Student in an Organized Health Care Education/Training Program; PCP Family Medicine; Visit Provider Student in an Organized Health Care Education/Training Program
DX: S61.451A Open bite of right hand, initial encounter (principal); E11.9 Type 2 diabetes mellitus without complications; S61.452A Open bite of left hand, initial encounter; I25.10 Atherosclerotic heart disease of native coronary artery without angina pectoris; W54.0XXA Bitten by dog, initial encounter; I10 Essential (primary) hypertension; E78.5 Hyperlipidemia, unspecified; Z87.891 Personal history of nicotine dependence
CPT/HCPCS: 99282

== ENCOUNTER 2024-09-17 05:40 | Emergency (ER) | payer MEDICARE, SELFPAY ==
[2024-09-17 05:40] VITALS: BP 138/76; PULSE 63; RESP 17; TEMP 36.4; O2SAT 98; BMI 27.7
[2024-09-17 05:44] VITALS: BP 140/69; PULSE 66; RESP 18; TEMP 36.4; O2SAT 100
--- NOTE | 2024-09-17 05:46 | CT_ITS ---
PROCEDURE: ABDOMEN/PELVIS WITHOUT CONT 09/17/2024 REASON FOR EXAM: PAIN TECHNIQUE: Abdomen and pelvis CT without intravenous contrast. Noncontrast technique limits evaluation of the abdominal and pelvic viscera. Coronal and Sagittal reconstruction series were provided. One or more dose reduction techniques were used (e.g., Automated exposure control, adjustment of the mA and/or kV according to patient size, use of iterative reconstruction technique). PATIENT PREPARATION: Per protocol ORAL CONTRAST TYPE: None. FINDINGS: Mild dependent basilar atelectasis. LAD and right coronary calcification noted. The liver, gallbladder, adrenal glands, pancreas and spleen appear within limits on noncontrast imaging. Nonobstructing right intrarenal stone and right renal cyst noted. 4 mm presenting axis distal left ureteral stone adjacent to the UVJ with mild to moderate left hydroureteronephrosis. Based on size may spontaneously pass. Multiple nonobstructing left intrarenal stones. Exophytic left renal cyst. Asymmetric left perinephric and [place] pelvic stranding, edema may be reactive. Aortoiliac atherosclerotic calcification. No abdominal aortic aneurysm. Circumaortic left renal vein, anatomic variant. No adenopathy. No bowel dilation or free air. Status post partial sigmoid resection. The bladder and prostate appear within limits. No free fluid. Multilevel lower lumbar spondylosis/discogenic change with suggestion of bilateral foraminal and central narrowing. CT/Abdomen/Pelvis without Cont IMPRESSION: 4 mm presenting axis distal left ureteral stone adjacent to the UVJ with mild t o moderate left hydroureteronephrosis. Based on size may spontaneously pass. Asymmetric left perinephric and peripelvic stranding, edema may be reactive. Multiple nonobstructing left intrarenal stones. Exophytic left renal cyst. Nonobstructing right intrarenal stone and right renal cyst noted. LAD and right coronary calcification noted. Reading Location: [id number]
--- NOTE | 2024-09-17 05:56 | ED.VIS.GI ---
HPI HPI - GI History of Present Illness Chief Complaint: Flank Pain Informant: patient Abdominal Pain/Flank Pain Onset: Today and Hours Context: Gradual Onset Timing: Continuous Location: Left Flank (Left groin) Current Severity: Moderate Maximum Severity: Moderate Worsened by: Nothing Relieved by: Nothing Nausea/Vomiting/Emesis GI Symptom: Negative for Nausea or Vomiting Diarrhea/Melena/Hematochezia GI Symptom: Negative for Diarrhea, Melena or Hematochezia Associated Symptoms Associated Symptoms: Negative for Dysuria, Frequency, Hematuria or Urgency Narrative Narrative: 74-year-old male history of multiple prior kidney stones, diabetes, CAD with 8 stents. States that he was woken from sleep around 2 AM this morning with left flank pain going into his groin. Pain has worsened. He denies any nausea, vomiting, diarrhea. He denies any fever. He denies any dysuria or hematuria. He has had kidney stones like this before. 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 Presence of stent in coronary artery (~11/04/12) Kidney stones Hematuria BPH (benign prostatic hyperplasia) Essential hypertension Diabetes mellitus type II, controlled Hyperlipidemia Atherosclerosis of coronary artery of [place] heart without angina pectoris Home Medications ?Medication ?Instructions ?Recorded ?Last Taken ?Type lisinopril 10 mg tablet 10 mg PO DAILY 11/13/15 Unknown History atorvastatin 40 mg tablet 40 mg PO QHS #90 tabs 02/25/19 Unknown Rx metformin 500 mg tablet 1,000 mg PO BID 05/11/19 Unknown History multivitamin 1 tab PO DAILY 05/19/19 Unknown History ezetimibe 10 mg tablet 10 mg PO DAILY #90 tabs 12/21/19 Unknown Rx cholecalciferol (vitamin D3) 50 50 mcg PO DAILY 06/16/20 Unknown History mcg (2,000 unit) capsule aspirin 81 mg tablet,delayed 81 mg PO DAILY 06/20/20 Unknown History release (Adult Aspirin Regimen) finasteride 5 mg tablet 5 mg PO DAILY 01/06/21 Unknown History linagliptin 5 mg tablet (Tradjenta) 5 mg PO DAILY 07/11/22 Unknown History metoprolol succinate 25 mg 25 mg PO DAILY 07/11/22 Unknown History tablet,extended release 24 hr naproxen 500 mg tablet 250 mg PO BID PRN pain 07/11/22 Unknown History prednisone 5 mg tablet 5 mg PO DIRECTED PRN pain 07/11/22 Unknown History vit B6-mag cit,ox-potassium cit 1 tab PO DAILY 07/11/22 Unknown History 3.75 mg-45 mg-45 mg-49.5 mg tablet ER (Theralith XR) oxycodone-acetaminophen 5 mg-325 1 tab PO Q8H PRN pain 2 days #5 09/17/24 Unknown Rx mg tablet (Percocet) tabs Allergy/AdvReac Type Severity Reaction Status Date / Time Seasonal Allergies: Uncoded Allergy Intermediate Other Verified 09/17/24 05:41 Tetanus Vaccines and Toxoid Allergy Anaphylaxis Verified 09/17/24 05:41 (Tetanus Vaccines & Toxoid) Family History Father Kidney stones Brain tumor Mother Hypertension Congestive heart failure Brother CAD (coronary artery disease) Hypertension Hyperlipidemia Surgical History Presence of coronary angioplasty implant and graft (~11/04/12) Status post cataract extraction of both eyes with insertion of intraocular lens (~07/2014) History of colon resection (01/1963) History of lithotripsy 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 Constitutional Constitutional ED: Denies fever(s) ENT ENT ED: Denies ear pain Cardiovascular Cardiovascular: Denies chest pain Respiratory/Chest Respiratory/Chest: Denies cough Gastrointestinal Gastrointestinal: Denies abdominal pain Genitourinary Genitourinary ED: Denies dysuria or hematuria Musculoskeletal Musculoskeletal: Denies arthralgias Integumentary Denies abscess Neurologic Neurologic: Denies headache(s) Psychiatric Psychiatric: Denies anxiety Endocrine Endocrinology: Denies polydipsia Hematologic/Lymphatic Hematologic/Lymphatic: Denies easy bleeding or easy bruising Allergic/Immunologic Allergic/Immunologic ED: Denies mouth swelling, tongue swelling or urticaria EXAM Physical Exam Narrative Exam Narrative: Well-appearing 74-year-old male. Accompanied by his . Vital signs stable afebrile. H EENT exam pupils round react light. Mytrex membranes. Lungs clear to auscultation bilaterally. Heart regular rhythm rate about 65 no murmur. Chest wall and ribs nontender. Abdomen soft, nontender, nondistended, normal bowel sounds without peritoneal signs. No pulsatile mass. Both the right upper and right lower quadrant are nontender. He describes pain in the left lower quadrant and flank but is not reproducible. There is no hernia or mass. No signs of trauma. No rash. Back nontender. Moving all 4 extremities. Nontender no edema. Normal strength. Neurologically is alert. Answering questions fully commands. Motor. Const Vital Signs: 09/17/24 05:40 09/17/24 05:44 09/17/24 06:44 Temperature 97.5 F L 97.5 F L 97.8 F Temperature Source Oral Oral Oral Pulse Rate 63 66 62 Respiratory Rate 17 18 18 Blood Pressure 138/76 H 140/69 H 137/55 H Blood Pressure Mean 96 92 82 Pulse Ox 98 100 98 Oxygen Delivery Method Room Air Room Air Room Air Positive well nourished and well developed; Negative for cachectic, contractures or unkempt General Appearance ED: well developed; Negative for unkempt, cachectic, contractures or pallor Nutritional Appearance: Negative for cachectic HEENT Reports moist mucous membranes normocephalic and atraumatic Eyes PERRL and EOMs intact bilaterally General Eye ED: Negative for pale conjunctiva or scleral icterus Neck no lymphadenopathy, supple and no JVD General: Negative for tenderness Resp normal respiratory effort and clear to auscultation bilaterally Effort and Inspection: Negative for respiratory distress Auscultation: Negative for rales, rhonchi or wheezes Cardio regular rate, regular rhythm, S1 normal heart sound, S2 normal heart sound and no murmurs Rate: Negative for bradycardia or tachycardic Rhythm: Negative for abnormal rhythm GI non-tender, non-distended and no masses Inspection: Negative for abdominal distention Auscultation: normoactive bowel sounds Palpation: soft; Negative for tender, guarding, rigid, hernia, mass, pulsatile mass or rebound tenderness present Back/Spine no CVA tenderness Extremity full ROM General Extremety ED: Negative for edema or tenderness General Extremity: Negative for edema Neuro CN's II-XII intact bilaterally and moves all extremities Sensorium / Orientation: alert, oriented to person, oriented to place and oriented to time; Negative for orientation impaired or confused Motor Exam: strength 5/5 throughout Psych mental status grossly normal and thought process normal Appearance: Negative for unkempt Skin no wounds General Skin Exam: Negative for jaundice or pallor Lesions: no lesions Rashes: no rashes MDM MDM MDM Narrative Medical decision making narrative: 74-year-old male left flank pain radiating to his groin. Nonreproducible on exam. No hernia. Clinically I think this is a kidney stone he has had multiple in the past. CAT scan and labs to be obtained along with urinalysis. He was offered something for pain. He really preferred just getting a Percocet. He did not want IV morphine and Dilaudid. He will be given an oxycodone for pain. Repeat exam patient doing well at 7 AM. Leases kidney stone may have passed into the bladder. He is feeling much better. Currently is pain-free. Repeat exam abdomen is benign nontender. Discussed test results of both he and his . CAT scan did show 4 mm stone by his bladder. He will be discharged home. Limited Percocet 5 no refill for pain. Follow-up with urology as needed and/or his primary care physician. History & Record Review Discussion w/independent historian: Patient and Family Additional record(s) reviewed:: Prior inpatient record, Prior outpatient record, Prior ED visit and Prior labs Lab Data Attestation: I reviewed the patient's lab results. Lab results narrative: CBC shows white count 9. H&H 12.7 and 38. Platelets 253. Chemistries show a gap of 11. BUN 28 creatinine 1.25. Glucose 185. CAT scan the abdomen pelvis without contrast shows a left UVJ 4 mm stone with hydro ureter and hydronephrosis. Urinalysis shows no signs of infection. No white or red cells. No bacteria. CAT scan left 4 mm kidney stone with hydronephrosis and ureter. Labs: Laboratory Results - last 24 hr 09/17/24 09/17/24 06:00 06:42 WBC 9.0 RBC 4.29 L Hgb 12.7 L Hct 38.2 L MCV 89.0 MCH 29.6 MCHC 33.2 RDW Std Deviation 41.0 RDW Coeff of [place] 12.6 Plt Count 253 MPV 10.0 Immature Gran % (Auto) 0.400 Neut % (Auto) 65.6 Lymph % (Auto) 20.3 [place] % (Auto) 8.4 Eos % (Auto) 4.6 Baso % (Auto) 0.7 Absolute Neuts (auto) 5.9 Absolute Lymphs (auto) 1.82 Nucleated RBC % 0 Sodium 139 Potassium 4.9 Chloride 106 Carbon Dioxide 21.4 Anion Gap 11 BUN 28 H Creatinine 1.25 H Estim Creat Clear Calc 52.72 Est GFR (MDRD) Non-Af 60 BUN/Creatinine Ratio 22.2 H Glucose 185 H Calcium 9.6 Urine Color Yellow Urine Clarity Clear Urine pH 6.0 Ur Specific [place] 1.020 Urine Protein 30 H Urine Glucose (UA) Normal Urine Ketones Negative Urine Occult Blood 50 H Urine Nitrite Negative Urine Bilirubin Negative Urine Urobilinogen Normal Ur Leukocyte Esterase Negative Urine RBC 0-5 SEEN Urine WBC 0 SEEN Ur Squamous Epith Cells 0 SEEN Urine Bacteria 0 SEEN Urine Mucus 0 SEEN Radiography Diagnostic Testing: Clinical Impression(s) from Imaging Studies Abdomen/Pelvis CT 09/17/24 05:46 IMPRESSION: 4 mm presenting axis distal left ureteral stone adjacent to the UVJ with mild to moderate left hydroureteronephrosis. Based on size may spontaneously pass. Asymmetric left perinephric and peripelvic stranding, edema may be reactive. Multiple nonobstructing left intrarenal stones. Exophytic left renal cyst. Nonobstructing right intrarenal stone and right renal cyst noted. LAD and right coronary calcification noted. Reading Location: [facility] Discharge Plan Triage Chief Complaint: Flank Pain ED Provider: Russ Salmon Dx/Rx/DC Orders Clinical Impression: Kidney stone on left side, History of diabetes mellitus, History of coronary artery disease Instructions: ED Kidney Stone with Pain Prescriptions: New oxycodone-acetaminophen [Percocet] 5-325 mg tablet 1 tab PO Q8H PRN (Reason: pain) 2 Days Qty: 5 0RF No Action metformin 500 mg tablet 1,000 mg PO BID multivitamin Tablet 1 tab PO DAILY ezetimibe 10 mg tablet 10 mg PO DAILY Qty: 90 3RF cholecalciferol (vitamin D3) 50 mcg (2,000 unit) capsule 50 mcg PO DAILY finasteride 5 mg tablet 5 mg PO DAILY Tradjenta 5 mg tablet 5 mg PO DAILY naproxen 500 mg tablet 250 mg PO BID PRN (Reason: pain) metoprolol succinate 25 mg tablet extended release 24 hr 25 mg PO DAILY prednisone 5 mg tablet 5 mg PO DIRECTED PRN (Reason: pain) Theralith XR 3.75-45-45-49.5 mg tablet extended release 1 tab PO DAILY lisinopril 10 MG tablet 10 mg PO DAILY atorvastatin 40 mg tablet 40 mg PO QHS Qty: 90 3RF aspirin [Adult Aspirin Regimen] 81 mg tablet,delayed release (DR/EC) 81 mg PO DAILY Primary Care Provider: Jose David Barajas Referrals: Jose David Barajas MD [Primary Care Provider] - As Needed Chema Santana MD [Med Staff - Active Staff] - As Needed Activity Restrictions/Additional Instructions: Left-sided 4 mm kidney stone. Plenty of fluids. Percocet as needed for pain. You probably will need it now. Follow-up with your doctor as needed. If you need a local urologist Dr. Nikhil Santana or you can follow-up with [place] with the [facility]. Print Language: Faroese Disposition Disposition: Home, Self Care
[2024-09-17] MEDS: oxyCODONE 5 MG Tablet PO (06:04)
[2024-09-17 06:09] LABS: Absolute Lymphocyte Count 1.82 X10^3/uL (0.83-4.51); Absolute Neutrophil Count 5.9 X10^3/uL (2.0-7.7); Basophil# 0.06 X10^3/uL; Basophil% 0.7 % (0-1); Eosinophil# 0.41 X10^3/uL; Eosinophils% 4.6 % (0-5); Hematocrit 38.2 % (40-54); Hemoglobin 12.7 g/dL (13.0-16.5); Lymphocyte # 1.82 X10^3/ul (0.83-4.51); Lymphocyte % 20.3 % (19-41); Mean Corp Hgb Conc 33.2 g/dL (32-36); Mean Corpuscular Hgb 29.6 pg (27.0-32.0); Monocyte# 0.75 X10^3/uL; Monocyte% 8.4 % (0-10); NRBC Flagged by Analyzer 0 % (0-5); Neutrophil # 5.88 X10^3/uL (2.7-7.7); Neutrophil % 65.6 % (47-70); Platelet Count 253 K/mm3 (150-450); RBC Distribution Width CV 12.6 % (11.6-14.6); Red Blood Count 4.29 M/mm3 (4.6-6.2)
[2024-09-17 06:38] LABS: Anion Gap 11 (5-15); BUN 28 mg/dL (4-19); BUN/Creat Ratio 22.2 RATIO (10-20); Calcium,Total 9.6 mg/dL (7.6-11.0); Carbon Dioxide 21.4 mmol/L (21.0-32.0); Chloride 106 mmol/L (98-108); Creatinine, Serum 1.25 mg/dL (0.70-1.20); EST Glomerular Filtration Rate 60 (>60); Estimated Creatinine Clearance 52.72 ml/min (50-250); Glucose 185 mg/dL (70-99); Potassium 4.9 mmol/L (3.3-5.1); Sodium Level 139 mmol/L (133-145)
[2024-09-17 06:44] VITALS: BP 137/55; PULSE 62; RESP 18; TEMP 36.6; O2SAT 98
[2024-09-17 06:49] LABS: Bacteria 0 SEEN /hpf (None Seen); Mucous, Urine 0 SEEN /hpf (<or=2+); Squamous Epithelial Cells - UA 0 SEEN /hpf (0-5); White Blood Cells 0 SEEN /hpf (0-5)
[2024-09-17 06:54] LABS: Color, Urine Yellow (Yellow); Glucose, Dipstick Normal (Normal); Ketone-Dipstick Negative (Negative); Leukocyte Esterase-Dipstick Negative /ul (Negative); Nitrite-Dipstick Negative (Negative); Occult Blood-Urine 50 /ul (Negative); Protein-Dipstick 30 mg/dl (Negative); Urine Bilirubin Dipstick Negative (Negative); Urine Clarity Clear (Clear); Urine Urobilinogen Normal (Normal)
[2024-09-17 07:01] LABS: Red Blood Cells-Urine 0-5 SEEN /hpf (0-5)
[2024-09-17 07:12] VITALS: BP 146/93; PULSE 74; RESP 18; TEMP 36.6; O2SAT 97
== END 2024-09-17 07:17 | disposition home or self-care (01) ==
PROVIDERS: Emergency Provider Emergency Medicine; PCP Family Medicine; Visit Provider Emergency Medicine
DX: N13.2 Hydronephrosis with renal and ureteral calculous obstruction (principal); E11.9 Type 2 diabetes mellitus without complications; I25.10 Atherosclerotic heart disease of native coronary artery without angina pectoris; N40.0 Benign prostatic hyperplasia without lower urinary tract symptoms; E78.5 Hyperlipidemia, unspecified; Z95.1 Presence of aortocoronary bypass graft; Z79.82 Long term (current) use of aspirin; Z79.84 Long term (current) use of oral hypoglycemic drugs; Z79.899 Other long term (current) drug therapy; Z87.442 Personal history of urinary calculi; Z89.022 Acquired absence of left finger(s); Z87.891 Personal history of nicotine dependence
CPT/HCPCS: 74176; 80048; 81001; 85025; 99284; A4216